=== PATIENT | female | born 1970 | race Caucasian/White ===

== ENCOUNTER 2019-03-24 14:02 | Emergency (ER) | payer OTHER ==
[2019-03-24 15:03] VITALS: BP 102/68; PULSE 80; TEMP 98.7; BMI 21.7
[2019-03-24] MEDS ORDERED: IBUPROFEN 600 MG TABLET (FP) PO ONE ×2 (15:54→15:55)
--- NOTE | 2019-03-24 18:38 | PDOC ---
History of Present Illness - General Chief Complaint: Cold Symptoms Stated Complaint: FEVER Time Seen by Provider: 03/24/19 15:35 History Source: Patient Exam Limitations: No Limitations Past History - Travel Traveled outside of the country in the last 30 days: No Close contact w/someone who was outside of country & ill: No - Past Medical History Allergies/Adverse Reactions: Allergies Allergy/AdvReac Type Severity Reaction Status Date / Time No Known Allergies Allergy Verified 03/24/19 15:02 COPD: No - Psycho Social/Smoking Cessation Hx Smoking History: Never smoked Review of Systems - Review of Systems Able to Perform ROS?: Yes Comments:: 03/24/19 19:43 CONSTITUTIONAL: Absent: fever, chills, diaphoresis, generalized weakness, malaise, loss of appetite HEENT: Present: sore throat Absent: rhinorrhea, nasal congestion, throat pain, throat swelling, difficulty swallowing, mouth swelling, ear pain, eye pain, visual Changes CARDIOVASCULAR: Absent: chest pain, loss of consciousness, palpitations, irregular heart rate, peripheral edema RESPIRATORY: Absent: cough, shortness of breath, dyspnea with exertion, orthopnea, wheezing, stridor, hemoptysis GASTROINTESTINAL: Absent: abdominal pain, abdominal distension, nausea, vomiting, diarrhea, constipation, melena, hematochezia GENITOURINARY: "Present: L ovary pain" Absent: dysuria, frequency, urgency, hesitancy, hematuria, flank pain, genital pain MUSCULOSKELETAL: Absent: myalgia, arthralgia, joint swelling SKIN: Absent: rash, itching, pallor HEMATOLOGIC/IMMUNOLOGIC: Absent: easy bleeding, easy bruising, lymphadenopathy, frequent infections ENDOCRINE: Absent: unexplained weight gain, unexplained weight loss, heat intolerance, cold intolerance NEUROLOGIC: Absent: headache, focal weakness or paresthesias, dizziness, unsteady gait, seizure, mental status changes, bladder or bowel incontinence PSYCHIATRIC: Absent: anxiety, depression, suicidal or homicidal ideation, hallucination Is the patient limited [place] proficient: No *Physical Exam - Vital Signs Last Vital Signs Temp Pulse Resp BP Pulse Ox 98.7 F 80 19 102/68 99 03/24/19 14:57 03/24/19 14:57 03/24/19 14:57 03/24/19 14:57 03/24/19 14:57 - Physical Exam 03/24/19 19:44 GENERAL: Well developed, well nourished. Awake and alert. No acute distress. HEENT: Normocephalic, atraumatic. PERRLA, EOMI. No conjunctival pallor. Sclera are non- icteric. Moist mucous membranes. Oropharynx is clear. NECK: Supple. Full ROM. No lymphadenopathy. CARDIOVASCULAR: Regular rate and rhythm. No murmurs, rubs, or gallops. Distal pulses are 2+ and symmetric. PULMONARY: No evidence of respiratory distress. Lungs clear to auscultation bilaterally. No wheezing, rales or rhonchi. ABDOMINAL: Soft. Non-tender. Non-distended. No rebound or guarding. No organomegaly. Normoactive bowel sounds. MUSCULOSKELETAL Normal range of motion at all joints. No bony deformities or tenderness. No CVA tenderness. EXTREMITIES: No cyanosis. No clubbing. No edema. No calf tenderness. SKIN: Warm and dry. Normal capillary refill. No rashes. No jaundice. NEUROLOGICAL: Alert, awake, appropriate. Cranial nerves 2-12 intact. No deficits to light touch and temperature in face, upper extremities and lower extremities. No motor deficits in the in face, upper extremities and lower extremities. Normoreflexic in the upper and lower extremities. Normal speech. Toes are down-going bilaterally. Gait is normal without ataxia. PSYCHIATRIC: Cooperative. Good eye contact. Appropriate mood and affect. ED Treatment Course - RADIOLOGY Radiology Studies Ordered: Category Date Time Status TRANSVAGINAL ULTRASOUND US [US] Stat Ultrasound 03/24/19 15:54 Taken - Medications Given in the ED: ED Medications Discontinued Medications Generic Name Dose Route Start Last Admin Trade Name Freq PRN Reason Stop Dose Admin Ibuprofen 600 mg 03/24/19 15:54 03/24/19 15:58 Motrin - PO 03/24/19 15:55 600 mg ONCE ONE Administration Medical Decision Making - Medical Decision Making 03/24/19 19:46 The patient is a 48-year-old female with no past medical history who presents to the ER with 1 week of throat pain, and one month of "left ovary pain." She states she does not have the ovary pain currently but she states that it comes and goes and she had it last night. She has been taking Motrin as needed for her pain. She does not have an HOME HEALTH NURSE. A/P: Pharyngitis, left adnexal pain On exam throat is nonerythematous without is 8 or edema. Rapid strep is negative. Likely a viral pharyngitis. Ultrasound does not show the ovaries. Abdomen is currently soft and nontender, no pain in the left lower quadrant or adnexal region. Likely a cyst. Discharge home with HOME HEALTH NURSE follow-up for repeat ultrasound and further management of her symptoms. Strict return precautions given. I discussed the physical exam findings, ancillary test results and final diagnoses with the patient. I answered all of the patient's questions. The patient was satisfied with the care received and felt comfortable with the discharge plan and treatment plan. The Patient agrees to follow up with the primary care physician/specialist within 24-72 hours. Return precautions were given. Discharge - Discharge Information Problems reviewed: Yes Clinical Impression/Diagnosis: Sore throat, Adnexal pain Condition: Stable Disposition: HOME - Admission No - Follow up/Referral Referrals: Michael Wagner MD [Staff Physician] - - Patient Discharge Instructions Patient Printed Discharge Instructions: DI for Viral Upper Respiratory Infection -- Adult Additional Instructions: You have an upper respiratory infection, or the common cold. Your strep testing was negative today. Please take Motrin 600 mg every 6 hours as needed for pain not to exceed 3000 mg a day. Your ultrasound did not visualize the ovary today. Please follow-up with HOME HEALTH NURSE in the week.. A referral has been provided to you. Drink plenty of fluids. Cough drops and warm tea may help your symptoms as well. Please follow up with her primary care doctor this week. Return to the emergency department if you have difficulty breathing, shortness of breath, worsening pain, nausea, vomiting or if you have any changes in your symptoms. Tiene danny infeccin de las vas respiratorias superiores o el resfriado comn. Tu prueba de estreptococos fue negativa hoy. Por favor, tome Motrin 600 mg cada 6 horas segn sea necesario para que el dolor no exceda 3000 mg al da. Pak ultrasonido no visualiz el ovario hoy en da. Por favor, sabas un seguimiento con obstetra/ginecn en la semana.. Se le dan proporcionado danny referencia. Adelia mucho lquido. Las gotas de tos y el t caliente tambin pueden ayudar a los sntomas. Por favor, sabas un seguimiento con pak mdico de atencin primaria esta semana. Regrese al servicio de urgencias si tiene dificultad para respirar, dificultad para respirar, empeoramiento del dolor, nuseas, vmitos o si tiene algn cambio en los sntomas. Print Language: PUERT[place] RICAN - Post Discharge Activity Work/Back to School Note: Back to Work
== END 2019-03-24 18:48 | disposition home or self-care (01) ==
LOC: JERFT 14:02
DX: J06.9 Acute upper respiratory infection, unspecified (principal)
CPT/HCPCS: 76830-TC; 87070; 87880; 99281-25